=== PATIENT | male | born 1980 | race American Indian/Alaskan Native ===

== ENCOUNTER 2020-06-01 18:17 | Emergency (ER) | payer OTHER ==
[~2020-06-01] VITALS: Ht 165.1 cm; Wt 66.7 kg
[2020-06-01 18:23] VITALS: BP 126/73
--- NOTE | 2020-06-01 18:30 | NUR ---
THE PATIENT IS BIBS FOR C/O DOG BITE ,LEFT LEG, SUSTAINED 2 DAYS AGO. PATIENT IS ALERT AND ORIENTED X4. IN ROOM AIR AND DENIES SOB. RESPIRATION REGULAR AND UNLABORED. PATIENT DENIES PAIN AT THIS TIME. WILL CONTINUE TO MONITOR.
[2020-06-01] MEDS ORDERED: AMOX-430 PO (18:42)
[2020-06-01] MEDS: AMOX/CLAVULANATE 875 MG TABLET PO ONE (18:43)
[2020-06-01] MEDS ORDERED: AMOX/CLAVULANATE 875 MG TABLET ONE (18:44)
--- NOTE | 2020-06-01 18:48 | NUR ---
Patient discharged to home in stable condition. Written and verbal after care instructions given. Patient verbalizes understanding of instruction. The patient left ER in stable condition.
== END 2020-06-01 18:49 | disposition home or self-care (01) ==
LOC: ER 18:23
DX: S81.852A Open bite, left lower leg, initial encounter (principal); F10.10 Alcohol abuse, uncomplicated; F17.200 Nicotine dependence, unspecified, uncomplicated; Y90.9 Presence of alcohol in blood, level not specified; Z60.2 Problems related to living alone; Z79.899 Other long term (current) drug therapy; W54.0XXA Bitten by dog, initial encounter; Y93.89 Activity, other specified; Y92.89 Other specified places as the place of occurrence of the external cause; Y99.8 Other external cause status

== ENCOUNTER → 2020-06-03 | Emergency (ER) | payer OTHER ==
[~2020-06-03] VITALS: Ht 165.1 cm; Wt 71.2 kg
[~2020-06-03] MED LIST: AMOX-430 PO
[2020-06-03 10:13] VITALS: BP 156/93
--- NOTE | 2020-06-03 10:13 | NUR ---
VISIT FOR WOUND CHECK, LLE DOG BITE 2 DAYS AGO. THE PATIENT DENIES PAIN. WILL CONTINUE TO MONITOR.
--- NOTE | 2020-06-03 10:17 | NUR ---
Patient discharged to home in stable condition. Written and verbal after care instructions given. Patient verbalizes understanding of instruction. The patient left ER in stable condition.
== END | disposition home or self-care (01) ==
LOC: ER 10:28
DX: S89.82XD Other specified injuries of left lower leg, subsequent encounter (principal); F10.10 Alcohol abuse, uncomplicated; F17.200 Nicotine dependence, unspecified, uncomplicated; Y90.9 Presence of alcohol in blood, level not specified; Z60.2 Problems related to living alone; Z79.899 Other long term (current) drug therapy; W54.0XXD Bitten by dog, subsequent encounter

== ENCOUNTER 2020-06-12 15:38 | Emergency (ER) | payer OTHER ==
[~2020-06-12] VITALS: Ht 165.1 cm; Wt 63.5 kg
[2020-06-12 15:51] VITALS: BP 137/81
[2020-06-12] MEDS ORDERED: AMOX-430 PO (17:15)
[2020-06-12] MEDS ORDERED: NEOM28.37 TP (17:16)
[2020-06-12] MEDS ORDERED: IBUP-1955 PO (17:16)
[2020-06-12] MEDS ORDERED: BACI/NEOM/POLY B OINT PKT 1 UDPKT PACKET ONE (17:22)
[2020-06-12] MEDS ORDERED: AMOX/CLAVULANATE 875 MG TABLET ONE (17:22)
[2020-06-12] MEDS ORDERED: AMOX/CLAVULANATE 875 MG TABLET PO ONE (17:30)
[2020-06-12] MEDS ORDERED: BACITRACIN ZINC OINT PACKET 1 EA PACKET TP ONE (17:30)
--- NOTE | 2020-06-12 17:44 | NUR ---
Patient discharged to home in stable condition. Written and verbal after care instructions given. Patient verbalizes understanding of instruction.
== END 2020-06-12 17:43 | disposition home or self-care (01) ==
LOC: ER 15:47
DX: S81.852D Open bite, left lower leg, subsequent encounter (principal); L08.9 Local infection of the skin and subcutaneous tissue, unspecified; Z60.2 Problems related to living alone; W54.0XXD Bitten by dog, subsequent encounter

== ENCOUNTER 2020-06-15 14:39 | Emergency (ER) | payer OTHER ==
[~2020-06-15] VITALS: Ht 167.6 cm; Wt 70.3 kg
[~2020-06-15 14:39] MED LIST changes: +IBUP-1955 PO; +NEOM28.37 TP
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
[2020-06-15] MEDS ORDERED: diphenhydrAMINE HCL 50 MG/ML VIAL ONE (15:00)
[2020-06-15] MEDS: TDAP [DIPH/PERTUSSIS/TET] 0.5 ML VIAL IM ONE (15:00)
[2020-06-15] MEDS ORDERED: LORAZEPAM INJ 2 MG/ML VIAL ONE (15:01)
[2020-06-15] MEDS ORDERED: LIDOCAINE 1% INJ 50 ML MDV IJ ONE (15:01)
[2020-06-15] MEDS ORDERED: HALOPERIDOL LACTATE INJ 5 MG/ML VIAL ONE (15:01)
[2020-06-15] MEDS ORDERED: TDAP [DIPH/PERTUSSIS/TET] 0.5 ML VIAL IM ONE (15:01)
[2020-06-15] MEDS: diphenhydrAMINE HCL 50 MG/ML VIAL IM ONE (15:10)
[2020-06-15] MEDS: HALOPERIDOL LACTATE INJ 5 MG/ML VIAL IM ONE (15:10)
[2020-06-15] MEDS: LORAZEPAM INJ 2 MG/ML VIAL IM ONE (15:10)
[2020-06-15] MEDS: LIDOCAINE HCL/PF 1% 30 ML VIAL TP ONE (15:15)
--- NOTE | 2020-06-15 17:26 | NUR ---
ingrid pelaez at bedside for suture
--- NOTE | 2020-06-15 18:54 | NUR ---
pt is alert, awake and oriented. pt is requesting to go already. pt 's gait tested and on steady gait. pt denied suicidal nor homicidal ideation upon asking. pt signed homeless waiver. meal provided.
[2020-06-15 18:57] VITALS: BP 135/76
== END 2020-06-15 18:58 | disposition home or self-care (01) ==
LOC: ER 14:40
DX: S01.81XA Laceration without foreign body of other part of head, initial encounter (principal); F15.10 Other stimulant abuse, uncomplicated; F10.10 Alcohol abuse, uncomplicated; F17.200 Nicotine dependence, unspecified, uncomplicated; Y90.9 Presence of alcohol in blood, level not specified; Z60.2 Problems related to living alone; Z79.899 Other long term (current) drug therapy; X58.XXXA Exposure to other specified factors, initial encounter; Y93.89 Activity, other specified; Y92.89 Other specified places as the place of occurrence of the external cause; Y99.8 Other external cause status
CPT/HCPCS: 12011; 90471; 90715; 96372 ×2; 99284; A6403; J1200; J1630; J2060; J3490

== ENCOUNTER 2022-01-06 13:16 | Emergency (ER) | payer OTHER ==
[~2022-01-06] VITALS: Ht 165.1 cm; Wt 74.8 kg
--- NOTE | 2022-01-06 13:48 | NUR ---
BIBS FOR RIGHT UPPER ARM SWELLING AND REDNESS X3DAYS. PAIN IS 8/10 ON PAINS SCALE. AWAITING MD HOLGUIN.
[2022-01-06] MEDS ORDERED: BACI/NEOM/POLY B OINT PKT 1 UDPKT PACKET TP ONE (14:30)
[2022-01-06] MEDS ORDERED: LIDOCAINE 1% INJ 50 ML MDV IJ ONE (14:30)
[2022-01-06] MEDS ORDERED: CEPH500C2 PO (16:24)
[2022-01-06] MEDS ORDERED: SULF1TAB48 PO (16:24)
[2022-01-06 16:41] VITALS: BP 125/74
--- NOTE | 2022-01-06 16:41 | NUR ---
Patient discharged to home/homeless in stable condition. Written and verbal after care instructions given. Patient verbalizes understanding of instruction. Homeless waiver/resources refused by pt at this time. Dinner tray accepted by pt.
== END 2022-01-06 16:42 | disposition home or self-care (01) ==
LOC: ER 13:16
DX: L02.413 Cutaneous abscess of right upper limb (principal); L03.113 Cellulitis of right upper limb; F17.200 Nicotine dependence, unspecified, uncomplicated; Z60.2 Problems related to living alone; Z79.899 Other long term (current) drug therapy
CPT/HCPCS: 99283; 10060; A6407

== ENCOUNTER 2022-01-09 20:46 | Emergency (ER) | payer OTHER ==
[~2022-01-09] VITALS: Ht 165.1 cm; Wt 65.8 kg
[~2022-01-09 20:46] MED LIST changes: +CEPH500C2 PO; +SULF1TAB48 PO
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
[2022-01-09 22:14] VITALS: BP 128/75
--- NOTE | 2022-01-09 22:40 | NUR ---
Patient discharged to home in stable condition. Written and verbal after care instructions given. Patient verbalizes understanding of instruction.
== END 2022-01-09 22:40 | disposition home or self-care (01) ==
LOC: ER 20:50
DX: Z48.00 Encounter for change or removal of nonsurgical wound dressing (principal); F17.200 Nicotine dependence, unspecified, uncomplicated; Z60.2 Problems related to living alone; Z79.899 Other long term (current) drug therapy